=== PATIENT | female | born 1940 | race Caucasian/White ===

== ENCOUNTER 2017-04-18 13:29 | Inpatient (IN) | payer MEDICAID ==
[~2017-04-18] VITALS: Ht 160 cm; Wt 58.3 kg
[~2017-04-18 13:29] MED LIST: ALENDRONATE; AMLODIPINE; ASA; FLUOXETINE; GLIPIZIDE; METFORMIN; METOPROLOL; OMEP40CA34; OYSTER CALCIUM; PRAV40TA; ZOLPIDEM
[2017-04-18] MEDS ORDERED: SODIUM CHLORIDE 0.9% 1,000 ML IV ONE (14:25)
[2017-04-18 15:16] LABS: BASOPHILS % 0.4 % (0.0-2.0); EOSINOPHILS % 2.6 % (0.0-5.0); HEMATOCRIT. 40.1 % (36.0-48.0); HEMOGLOBIN. 13.4 g/dL (12.0-16.0); LYMPHOCYTES % 33.4 % (20.0-50.0); MEAN CORPUSCULAR HEMOGLOBIN 29.7 pg (28.0-32.0); MEAN CORPUSCULAR VOLUME 89.2 fL (81.0-99.0); MEAN PLATELET VOLUME 8.7 fl (7.4-10.4); MONOCYTES % 9.6 % (2.0-8.0); PLATELET 235 x1000/uL (130-400); RED CELL DISTRIBUTION WIDTH 16.2 % (11.6-14.6)
[2017-04-18 15:24] LABS: PARTIAL THROMBOPLASTIN TIME 25.9 sec (23.4-31.0); PROTHROMBIN TIME 10.6 sec (9.4-11.6)
[2017-04-18 15:25] LABS: CHLORIDE 101 mEq/L (98-107)
[2017-04-18 15:26] LABS: CLARITY URINE CLEAR (CLEAR); COLOR URINE YELLOW (YELLOW); KETONES URINE NEGATIVE (NEGATIVE); LEUKOCYTE ESTERASE URINE NEGATIVE (NEGATIVE); NITRITE URINE NEGATIVE (NEGATIVE); OCCULT BLOOD URINE NEGATIVE (NEGATIVE); PROTEIN URINE NEGATIVE (NEGATIVE); SPECIFIC GRAVITY URINE 1.011 (1.005-1.030)
[2017-04-18 15:36] LABS: CARBON DIOXIDE 29 mEq/L (21-32); TROPONIN I < 0.02 ng/mL (0.00-0.04)
[2017-04-18 15:37] LABS: CREATINE KINASE MB FRACTION 0.8 ng/mL (0.5-3.6)
[2017-04-18] MEDS ORDERED: ASPIRIN 325MG EC TABLET PO ONE (16:00)
[2017-04-18 18:18] VITALS: BP 143/75
[2017-04-18] MEDS ORDERED: ATOR20TA65 PO (18:27)
[2017-04-18] MEDS ORDERED: AMLO1CAP PO (18:27)
[2017-04-18] MEDS ORDERED: FLUO-124 PO (18:27)
[2017-04-18] MEDS ORDERED: METO100T16 PO (18:27)
[2017-04-18] MEDS ORDERED: METF10002 PO (18:27)
[2017-04-18] MEDS ORDERED: ALBU18HF2 IH (18:27)
[2017-04-18] MEDS ORDERED: ACET-1465 PO (18:27)
[2017-04-18 19:45] LABS: BG BASE EXCESS -4.5 mmol/L (-2.0-2.0); BG CARBOXYHEMOGLOBIN 0.8 % (0.5-1.5); BG DEOXYHEMOGLOBIN 6.9 % (0.0-5.0); BG FRACTION INSPIRED OXYGEN 21; BG HCO3 ACT 18.4 mmol/L (22.0-26.0); BG METHEMOGLOBIN 0.2 % (0.0-1.5); BG OXYHEMOGLOBIN 92.1 % (94.0-97.0); BG PCO2 28.6 mmHg (35.0-45.0); BG PH 7.427 (7.350-7.450); BG PO2 69.8 mmHg (75.0-100.0); BG SAMPLE SITE LEFT RADIAL; BG TOTAL HEMOGLOBIN 13.9 g/dL (12.0-18.0); BG VENT MODE ROOM AIR
[2017-04-18] MEDS ORDERED: DEXT 5%/0.45% NACL 1000ML 1,000 ML IV SCH (20:00)
[2017-04-18] MEDS: BLOOD SUGAR DIAGNOSTIC STRIP TEST SCH (20:31)
[2017-04-18] MEDS: ENOXAPARIN 40MG/0.4ML SYR SUBCUT SCH (20:31)
[2017-04-18 20:49] VITALS: BP 135/75
[2017-04-19] VITALS: BP 129/79
[2017-04-19 04:00] VITALS: BP 129/73
[2017-04-19 06:32] LABS: BASOPHILS % 0.9 % (0.0-2.0); EOSINOPHILS % 2.1 % (0.0-5.0); HEMATOCRIT. 38.2 % (36.0-48.0); HEMOGLOBIN. 12.8 g/dL (12.0-16.0); LYMPHOCYTES % 38.7 % (20.0-50.0); MEAN CORPUSCULAR HEMOGLOBIN 29.8 pg (28.0-32.0); MEAN PLATELET VOLUME 8.4 fl (7.4-10.4); NEUTROPHILS % 47.3 % (40.0-76.0); PLATELET 230 x1000/uL (130-400); RED BLOOD CELL COUNT 4.29 mill/uL (4.2-5.4); RED CELL DISTRIBUTION WIDTH 15.9 % (11.6-14.6)
[2017-04-19] MEDS: BLOOD SUGAR DIAGNOSTIC STRIP TEST SCH ×4 (06:41→20:20)
[2017-04-19 07:35] LABS: CARBON DIOXIDE 28 mEq/L (21-32); CHLORIDE 101 mEq/L (98-107)
[2017-04-19 08:00] VITALS: BP 126/75
[2017-04-19 12:20] VITALS: BP 131/74
[2017-04-19 13:25] LABS: VITAMIN B12 SERUM 494 pg/mL (211-911)
[2017-04-19 14:06] LABS: FOLIC ACID (FOLATE) SERUM > 20.00 ng/mL (>5.38)
[2017-04-19 14:57] LABS: *AMPHETAMINES SCREEN URINE NEGATIVE (NEGATIVE); *BARBITURATES SCREEN URINE NEGATIVE (NEGATIVE); *BENZODIAZEPINES SCREEN URINE NEGATIVE (NEGATIVE); *COCAINE SCREEN URINE NEGATIVE (NEGATIVE); CANNABINOID URINE SCREEN NEGATIVE (NEGATIVE); METHADONE URINE SCREEN NEGATIVE (NEGATIVE); OPIATES URINE SCREEN NEGATIVE (NEGATIVE); PHENCYCLIDINE URINE SCREEN NEGATIVE (NEGATIVE)
[2017-04-19 16:15] VITALS: BP 141/69
[2017-04-19 16:26] LABS: ETHANOL BLOOD < 10 mg/dL; HDL CHOLESTEROL 35 mg/dL (40-59); LDL CHOLESTEROL 65 mg/dL (5-100)
[2017-04-19 20:00] VITALS: BP 140/82
[2017-04-19] MEDS: ATORVASTATIN CALCIUM 10MG TABLET PO SCH (20:15)
[2017-04-19] MEDS: ENOXAPARIN 40MG/0.4ML SYR SUBCUT SCH (20:15)
[2017-04-19] MEDS: METOPROLOL TARTRATE 25MG TABLET PO SCH (20:53)
[2017-04-19] MEDS: ASPIRIN 81MG TABLET PO SCH (20:53)
[2017-04-19] MEDS: INSULIN LISPRO 100 UNITS/ML SUBCUT SCH (21:00)
[2017-04-20] VITALS: BP 140/71
[2017-04-20 04:00] VITALS: BP 123/72
[2017-04-20] MEDS: BLOOD SUGAR DIAGNOSTIC STRIP TEST SCH ×4 (05:49→20:54)
[2017-04-20] MEDS: INSULIN LISPRO 100 UNITS/ML SUBCUT SCH ×4 (06:23→20:54)
[2017-04-20 07:14] LABS: BASOPHILS % 0.8 % (0.0-2.0); EOSINOPHILS % 2.9 % (0.0-5.0); HEMATOCRIT. 39.6 % (36.0-48.0); HEMOGLOBIN. 13.4 g/dL (12.0-16.0); LYMPHOCYTES % 44.3 % (20.0-50.0); MEAN CORPUSCULAR HEMOGLOBIN 29.9 pg (28.0-32.0); MEAN CORPUSCULAR VOLUME 88.2 fL (81.0-99.0); MEAN PLATELET VOLUME 8.4 fl (7.4-10.4); MONOCYTES % 10.9 % (2.0-8.0); NEUTROPHILS % 41.1 % (40.0-76.0); PLATELET 250 x1000/uL (130-400); RED BLOOD CELL COUNT 4.49 mill/uL (4.2-5.4); RED CELL DISTRIBUTION WIDTH 15.9 % (11.6-14.6)
[2017-04-20 07:39] LABS: CHLORIDE 103 mEq/L (98-107)
[2017-04-20 08:00] VITALS: BP 131/71
[2017-04-20 08:04] LABS: CARBON DIOXIDE 25 mEq/L (21-32)
[2017-04-20] MEDS: ASPIRIN 81MG TABLET PO SCH (08:24)
[2017-04-20] MEDS: METOPROLOL TARTRATE 25MG TABLET PO SCH ×2 (08:25→20:42)
[2017-04-20 12:00] VITALS: BP 139/86
[2017-04-20] MEDS: APIXABAN 5 MG TABLET PO SCH ×2 (13:19→20:42)
[2017-04-20 16:00] VITALS: BP 145/64
[2017-04-20 20:00] VITALS: BP 144/74
[2017-04-20] MEDS: ATORVASTATIN CALCIUM 10MG TABLET PO SCH (20:42)
[2017-04-21] VITALS: BP 154/75
[2017-04-21 04:00] VITALS: BP 144/84
[2017-04-21] MEDS: BLOOD SUGAR DIAGNOSTIC STRIP TEST SCH ×4 (06:15→21:35)
[2017-04-21] MEDS: INSULIN LISPRO 100 UNITS/ML SUBCUT SCH ×4 (07:01→21:55)
[2017-04-21 08:00] VITALS: BP 150/78
[2017-04-21] MEDS: METOPROLOL TARTRATE 25MG TABLET PO SCH ×2 (09:51→21:50)
[2017-04-21] MEDS: ASPIRIN 81MG TABLET PO SCH (09:51)
[2017-04-21] MEDS: APIXABAN 5 MG TABLET PO SCH ×2 (10:12→21:50)
[2017-04-21] MEDS ORDERED: IOHEXOL-350 100 ML BOTTLE ONE (11:43)
[2017-04-21 12:00] VITALS: BP 145/80
[2017-04-21 16:00] VITALS: BP 145/85
[2017-04-21] MEDS: DIGOXIN 250MCG TABLET PO SCH (17:27)
[2017-04-21 20:00] VITALS: BP 122/67
[2017-04-21] MEDS: ATORVASTATIN CALCIUM 10MG TABLET PO SCH (21:49)
[2017-04-22] VITALS: BP 131/62
[2017-04-22 04:00] VITALS: BP 158/67
[2017-04-22] MEDS: BLOOD SUGAR DIAGNOSTIC STRIP TEST SCH ×4 (06:51→21:44)
[2017-04-22] MEDS: INSULIN LISPRO 100 UNITS/ML SUBCUT SCH ×4 (06:59→21:45)
[2017-04-22 08:00] VITALS: BP 106/83
[2017-04-22] MEDS: APIXABAN 5 MG TABLET PO SCH ×2 (09:15→21:43)
[2017-04-22] MEDS: ASPIRIN 81MG TABLET PO SCH (09:15)
[2017-04-22] MEDS: METOPROLOL TARTRATE 25MG TABLET PO SCH ×2 (09:16→21:43)
[2017-04-22 12:00] VITALS: BP 121/79
[2017-04-22 16:00] VITALS: BP 128/60
[2017-04-22] MEDS: DIGOXIN 250MCG TABLET PO SCH (18:04)
[2017-04-22 20:00] VITALS: BP 135/81
[2017-04-22] MEDS: ATORVASTATIN CALCIUM 10MG TABLET PO SCH (21:43)
[2017-04-22] MEDS: INSULIN DETEMIR UD 100 UNITS/ML SYR SUBCUT SCH (21:46)
[2017-04-23] VITALS: BP 131/79
[2017-04-23 04:00] VITALS: BP 132/68
[2017-04-23] MEDS: INSULIN LISPRO 100 UNITS/ML SUBCUT SCH ×4 (06:59→22:10)
[2017-04-23] MEDS: BLOOD SUGAR DIAGNOSTIC STRIP TEST SCH ×4 (07:00→21:17)
[2017-04-23 08:00] VITALS: BP 124/84
[2017-04-23] MEDS: ASPIRIN 81MG TABLET PO SCH (09:54)
[2017-04-23] MEDS: APIXABAN 5 MG TABLET PO SCH ×2 (09:54→21:16)
[2017-04-23] MEDS: METOPROLOL TARTRATE 25MG TABLET PO SCH ×2 (09:54→21:17)
[2017-04-23 12:23] VITALS: BP 132/69
[2017-04-23 16:31] VITALS: BP 142/53
[2017-04-23 20:00] VITALS: BP 132/65
[2017-04-23] MEDS: ATORVASTATIN CALCIUM 10MG TABLET PO SCH (21:17)
[2017-04-23] MEDS: INSULIN DETEMIR UD 100 UNITS/ML SYR SUBCUT SCH (22:00)
[2017-04-24] VITALS: BP 127/51
[2017-04-24 04:00] VITALS: BP 125/59
[2017-04-24] MEDS: BLOOD SUGAR DIAGNOSTIC STRIP TEST SCH ×4 (06:32→21:38)
[2017-04-24] MEDS: INSULIN LISPRO 100 UNITS/ML SUBCUT SCH ×4 (06:55→21:51)
[2017-04-24 08:00] VITALS: BP 123/68
[2017-04-24] MEDS: APIXABAN 5 MG TABLET PO SCH ×2 (09:47→21:50)
[2017-04-24] MEDS: METOPROLOL TARTRATE 25MG TABLET PO SCH ×2 (09:47→21:50)
[2017-04-24] MEDS: ASPIRIN 81MG TABLET PO SCH (09:47)
[2017-04-24 12:00] VITALS: BP 124/70
[2017-04-24 16:00] VITALS: BP 128/77
[2017-04-24 20:00] VITALS: BP 142/64
[2017-04-24] MEDS: ATORVASTATIN CALCIUM 10MG TABLET PO SCH (21:49)
[2017-04-24] MEDS: INSULIN DETEMIR UD 100 UNITS/ML SYR SUBCUT SCH (21:49)
[2017-04-25] VITALS: BP 115/70
[2017-04-25 04:00] VITALS: BP 154/64
[2017-04-25] MEDS: BLOOD SUGAR DIAGNOSTIC STRIP TEST SCH ×3 (06:16→17:27)
[2017-04-25] MEDS: INSULIN LISPRO 100 UNITS/ML SUBCUT SCH ×3 (06:36→17:27)
[2017-04-25 08:00] VITALS: BP 135/78
[2017-04-25] MEDS: ASPIRIN 81MG TABLET PO SCH (08:37)
[2017-04-25] MEDS: APIXABAN 5 MG TABLET PO SCH (08:37)
[2017-04-25] MEDS: METOPROLOL TARTRATE 25MG TABLET PO SCH (08:37)
[2017-04-25 12:00] VITALS: BP 151/71
[2017-04-25 16:00] VITALS: BP 128/60
[2017-04-25 16:16] VITALS: BP 145/80
== END 2017-04-25 20:22 | disposition short-term general hospital (02) | DRG 44 ==
LOC: ER 14:29 → ENRESERV 15:18 → 5WST 16:47 → EDBEDREQ 16:52
PROVIDERS: ADMIT Internal Medicine; ATTEND Internal Medicine
DX: I62.9 Nontraumatic intracranial hemorrhage, unspecified (principal); I48.92 Unspecified atrial flutter; G81.94 Hemiplegia, unspecified affecting left nondominant side; I48.0 Paroxysmal atrial fibrillation; R13.10 Dysphagia, unspecified; I11.9 Hypertensive heart disease without heart failure; J98.11 Atelectasis; R29.810 Facial weakness; E11.9 Type 2 diabetes mellitus without complications; E78.00 Pure hypercholesterolemia, unspecified; E78.5 Hyperlipidemia, unspecified; R79.89 Other specified abnormal findings of blood chemistry; R47.1 Dysarthria and anarthria; R26.9 Unspecified abnormalities of gait and mobility; I65.21 Occlusion and stenosis of right carotid artery; Z79.82 Long term (current) use of aspirin; Z79.01 Long term (current) use of anticoagulants; Z79.899 Other long term (current) drug therapy; Z82.5 Family history of asthma and other chronic lower respiratory diseases
CPT/HCPCS: 36415; 36600; 70450; 70498; 70544; 70553; 71010; 80048; 80053; 80061; 80305; 81003; 82375; 82553; 82607; 82746; 82805; 82962; 83036; 83735; 84439; 84443; 84481; 84484; 85025; 85610; 85730; 87086; 92610; 93005; 93306; 93880; 97112; 97116; 97162; 97166; 99285; C1893; G0482; J1650; J1815; J3490; J7030; Q9967

== ENCOUNTER 2018-03-04 04:59 | Emergency (ER) | payer MEDICAID ==
[~2018-03-04] VITALS: Ht 154.9 cm; Wt 58.9 kg
[~2018-03-04 04:59] MED LIST changes: +ACET-1465 PO; +ALBU18HF2 IH; +ALEN70TA46 MT; +AMLO1CAP PO; +APIX5TAB MT; +ATOR20TA65 PO; +FLUO-124 PO; +GLIP10TA10 MT; +INSU100I24 SQ; +LEVO750T46 MT; +METF-416 PO; +METO25TA6 PO; +PIOG15TA66 MT; +ZOLP5TAB8 MT
[2018-03-04 07:40] LABS: BASOPHILS % 0.9 % (0.0-2.0); EOSINOPHILS % 1.3 % (0.0-5.0); HEMATOCRIT. 35.5 % (36.0-48.0); HEMOGLOBIN. 11.8 g/dL (12.0-16.0); LYMPHOCYTES % 32.7 % (20.0-50.0); MEAN CORPUSCULAR HEMOGLOBIN 27.6 pg (28.0-32.0); MEAN CORPUSCULAR VOLUME 82.9 fL (81.0-99.0); MONOCYTES % 9.6 % (2.0-8.0); NEUTROPHILS % 55.5 % (40.0-76.0); PLATELET 171 x1000/uL (130-400); RED BLOOD CELL COUNT 4.29 mill/uL (4.2-5.4); RED CELL DISTRIBUTION WIDTH 16.5 % (11.6-14.6)
[2018-03-04] MEDS ORDERED: MORPHINE SULFATE 4 MG/ML CPJ (NOT FOR IM USE) IV STA (07:40)
[2018-03-04] MEDS ORDERED: ONDANSETRON HCL 4MG/2ML INJ IV STA (07:40)
[2018-03-04 07:46] LABS: INR 1.2
[2018-03-04 07:52] LABS: CHLORIDE 103 mEq/L (98-107)
[2018-03-04 08:44] LABS: CLARITY URINE CLEAR (CLEAR); COLOR URINE YELLOW (YELLOW); KETONES URINE TRACE (NEGATIVE); LEUKOCYTE ESTERASE URINE NEGATIVE (NEGATIVE); NITRITE URINE NEGATIVE (NEGATIVE); OCCULT BLOOD URINE NEGATIVE (NEGATIVE); PH URINE 7.5 (4.5-8.0); PROTEIN URINE NEGATIVE (NEGATIVE); SPECIFIC GRAVITY URINE 1.003 (1.005-1.030); UROBILINOGEN URINE 0.2 E.U./dL (0.2-1.0)
[2018-03-04 10:00] VITALS: BP 150/74
== END 2018-03-04 10:13 | disposition home or self-care (01) ==
LOC: ER 04:59
DX: R10.9 Unspecified abdominal pain (principal); R07.89 Other chest pain; R06.02 Shortness of breath; E78.00 Pure hypercholesterolemia, unspecified; I10 Essential (primary) hypertension; I25.2 Old myocardial infarction; Z86.73 Personal history of transient ischemic attack (TIA), and cerebral infarction without residual deficits; Z79.4 Long term (current) use of insulin; Z79.899 Other long term (current) drug therapy
CPT/HCPCS: 36415; 71045; 84484; 93005; 99285

== ENCOUNTER 2018-10-30 21:44 | Inpatient (IN) | payer MEDICAID ==
[~2018-10-30] VITALS: Ht 160 cm; Wt 53.5 kg
[~2018-10-30 21:44] MED LIST changes: -ALEN70TA46 MT; +ALEN70TA68 MT
[2018-10-31 02:07] LABS: BASOPHILS % 0.8 % (0.0-2.0); CHLORIDE 105 mEq/L (98-107); EOSINOPHILS % 3.3 % (0.0-5.0); HEMATOCRIT. 38.5 % (36.0-48.0); LYMPHOCYTES % 38.9 % (20.0-50.0); MEAN CORPUSCULAR HEMOGLOBIN 30.1 pg (28.0-32.0); MEAN PLATELET VOLUME 8.8 fl (7.4-10.4); MONOCYTES % 12.9 % (2.0-8.0); NEUTROPHILS % 44.1 % (40.0-76.0); PLATELET 153 x1000/uL (130-400); RED BLOOD CELL COUNT 4.32 mill/uL (4.2-5.4); RED CELL DISTRIBUTION WIDTH 15.8 % (11.6-14.6)
[2018-10-31 02:08] LABS: INR 1.3
[2018-10-31 08:00] VITALS: BP 147/73
[2018-10-31] MEDS ORDERED: ONDANSETRON HCL 4MG/2ML INJ IV PRN (09:15)
[2018-10-31] MEDS ORDERED: MAGNESIUM/ALUMINUM HYDROXIDE/SIMETHICONE 30ML UDC PO PRN (09:15)
[2018-10-31] MEDS ORDERED: DIPHENHYDRAMINE 50MG/ML VIAL IV PRN (09:15)
[2018-10-31] MEDS ORDERED: CLONIDINE 0.1MG TABLET PO PRN (09:15)
[2018-10-31] MEDS ORDERED: IPRATROPIUM/ALBUTEROL 0.5-3(2.5)MG/3ML NEB INH PRN (09:15)
[2018-10-31] MEDS ORDERED: HYDROCODONE/ACETAMINOPHEN 5/325MG TABLET PO PRN (09:15)
[2018-10-31] MEDS ORDERED: GUAIFENESIN 200MG/10ML SUGAR FREE UDC PO PRN (09:15)
[2018-10-31] MEDS ORDERED: ACETAMINOPHEN 325MG TABLET PO PRN (09:15)
[2018-10-31] MEDS ORDERED: ENOXAPARIN 40MG/0.4ML SYR SUBCUT SCH (09:30)
[2018-10-31 09:44] LABS: PHOSPHORUS 3.5 mg/dL (2.5-4.9)
[2018-10-31 10:00] VITALS: BP 147/73
[2018-10-31] MEDS: AZITHROMYCIN 500 MG in DEXT 5% WATER 250 ML IV SCH (11:24)
[2018-10-31 12:00] VITALS: BP 121/71
[2018-10-31 15:38] LABS: CREATINE KINASE 32 IU/L (26-192); CREATINE KINASE MB FRACTION < 1.0 ng/mL (0.5-3.6)
[2018-10-31 16:00] VITALS: BP 135/81
[2018-10-31] MEDS ORDERED: FUROSEMIDE 40MG/4ML VIAL IVP ONE (16:00)
[2018-10-31] MEDS ORDERED: DEXTROSE 50% WATER 50ML SYRINGE IV PRN (17:00)
[2018-10-31] MEDS: BLOOD SUGAR DIAGNOSTIC STRIP TEST SCH ×2 (17:31→21:18)
[2018-10-31] MEDS: METHYLPREDNISOLONE SOD SUCC 40 MG/ML VIAL IV SCH (17:49)
[2018-10-31] MEDS: INSULIN LISPRO 100 UNITS/ML SUBCUT SCH ×2 (17:56→20:19)
[2018-10-31 20:00] VITALS: BP 155/83
[2018-10-31] MEDS: APIXABAN 5 MG TABLET PO SCH (20:16)
[2018-10-31] MEDS: ZOLPIDEM TARTRATE 5MG TABLET PO PRN (20:17)
[2018-10-31] MEDS ORDERED: [UNRECOGNIZED DRUG - OTHER] PO (21:44)
[2018-10-31 23:38] LABS: CREATINE KINASE 36 IU/L (26-192)
[2018-10-31 23:39] LABS: CREATINE KINASE MB FRACTION < 1.0 ng/mL (0.5-3.6)
[2018-11-01] VITALS: BP 134/80
[2018-11-01 04:00] VITALS: BP 133/60
[2018-11-01] MEDS: BLOOD SUGAR DIAGNOSTIC STRIP TEST SCH ×4 (05:59→20:22)
[2018-11-01] MEDS: INSULIN LISPRO 100 UNITS/ML SUBCUT SCH ×4 (06:32→20:21)
[2018-11-01 07:32] LABS: BASOPHILS % 0.6 % (0.0-2.0); HEMATOCRIT. 40.1 % (36.0-48.0); HEMOGLOBIN. 13.4 g/dL (12.0-16.0); LYMPHOCYTES % 33.8 % (20.0-50.0); MEAN CORPUSCULAR HEMOGLOBIN 29.8 pg (28.0-32.0); MEAN CORPUSCULAR VOLUME 89.2 fL (81.0-99.0); MEAN PLATELET VOLUME 9.4 fl (7.4-10.4); MONOCYTES % 5.6 % (2.0-8.0); PLATELET 154 x1000/uL (130-400); RED BLOOD CELL COUNT 4.49 mill/uL (4.2-5.4); RED CELL DISTRIBUTION WIDTH 15.6 % (11.6-14.6)
[2018-11-01 07:37] LABS: CHLORIDE 104 mEq/L (98-107)
[2018-11-01 07:46] LABS: LDL CHOLESTEROL 49 mg/dL (5-100)
[2018-11-01 07:47] LABS: HDL CHOLESTEROL 39 mg/dL (40-59)
[2018-11-01 08:00] VITALS: BP 136/83
[2018-11-01] MEDS: APIXABAN 5 MG TABLET PO SCH ×2 (09:10→21:41)
[2018-11-01] MEDS: METHYLPREDNISOLONE SOD SUCC 40 MG/ML VIAL IV SCH (09:10)
[2018-11-01] MEDS: AMLODIPINE 5MG TABLET PO SCH (09:10)
[2018-11-01] MEDS: AZITHROMYCIN 500 MG in DEXT 5% WATER 250 ML IV SCH (10:49)
[2018-11-01] MEDS ORDERED: POTASSIUM CHLORIDE 20MEQ TABLET SR PO NR (11:15)
[2018-11-01 12:00] VITALS: BP 138/78
[2018-11-01 16:00] VITALS: BP 138/76
[2018-11-01] MEDS ORDERED: METO100T16 PO (18:20)
[2018-11-01] MEDS ORDERED: GABA-529 PO (18:26)
[2018-11-01] MEDS ORDERED: PIOG15TA23 MT (18:26)
[2018-11-01] MEDS ORDERED: METF-416 MT (18:26)
[2018-11-01 20:00] VITALS: BP 155/85
[2018-11-01] MEDS ORDERED: INSULIN LISPRO 100 UNITS/ML SUBCUT NR (22:15)
[2018-11-01] MEDS: ZOLPIDEM TARTRATE 5MG TABLET PO PRN (22:17)
[2018-11-02] VITALS: BP 145/80
[2018-11-02 04:00] VITALS: BP 137/85
[2018-11-02] MEDS: BUDESONIDE 0.5MG/2ML NEB HHN SCH ×3 (05:35→21:37)
[2018-11-02] MEDS: BLOOD SUGAR DIAGNOSTIC STRIP TEST SCH ×4 (06:41→21:35)
[2018-11-02] MEDS: INSULIN LISPRO 100 UNITS/ML SUBCUT SCH ×4 (06:47→21:47)
[2018-11-02] MEDS: DOCUSATE SODIUM 100MG CAPSULE PO PRN (06:47)
[2018-11-02 07:52] LABS: BASOPHILS % 0.6 % (0.0-2.0); EOSINOPHILS % 0.4 % (0.0-5.0); HEMATOCRIT. 39.5 % (36.0-48.0); HEMOGLOBIN. 13.2 g/dL (12.0-16.0); MEAN CORPUSCULAR HEMOGLOBIN 29.7 pg (28.0-32.0); MEAN CORPUSCULAR VOLUME 89.2 fL (81.0-99.0); MEAN PLATELET VOLUME 9.1 fl (7.4-10.4); MONOCYTES % 9.7 % (2.0-8.0); NEUTROPHILS % 65.3 % (40.0-76.0); PLATELET 162 x1000/uL (130-400); RED BLOOD CELL COUNT 4.43 mill/uL (4.2-5.4); RED CELL DISTRIBUTION WIDTH 15.9 % (11.6-14.6)
[2018-11-02 08:00] VITALS: BP 140/79
[2018-11-02 08:06] LABS: CHLORIDE 103 mEq/L (98-107)
[2018-11-02] MEDS: APIXABAN 5 MG TABLET PO SCH ×2 (08:24→21:32)
[2018-11-02] MEDS: AMLODIPINE 5MG TABLET PO SCH (08:24)
[2018-11-02] MEDS: METHYLPREDNISOLONE SOD SUCC 40 MG/ML VIAL IV SCH (08:24)
[2018-11-02] MEDS ORDERED: METOPROLOL TARTRATE 50MG TABLET PO NR (10:15)
[2018-11-02 12:00] VITALS: BP 138/77
[2018-11-02 16:00] VITALS: BP 138/80
[2018-11-02 20:00] VITALS: BP 142/76
[2018-11-02] MEDS: METOPROLOL TARTRATE 50MG TABLET PO SCH (21:45)
[2018-11-02] MEDS: INSULIN GLARGINE UD 100 UNITS/ML SYR SUBCUT SCH (21:48)
[2018-11-02] MEDS: ZOLPIDEM TARTRATE 5MG TABLET PO PRN (23:04)
[2018-11-03] VITALS: BP 140/81
[2018-11-03 04:00] VITALS: BP 127/73
[2018-11-03] MEDS: BLOOD SUGAR DIAGNOSTIC STRIP TEST SCH ×3 (07:02→16:45)
[2018-11-03] MEDS: INSULIN LISPRO 100 UNITS/ML SUBCUT SCH ×3 (07:03→19:32)
[2018-11-03 08:00] VITALS: BP 162/98
[2018-11-03] MEDS: BUDESONIDE 0.5MG/2ML NEB HHN SCH (08:03)
[2018-11-03 08:04] LABS: BASOPHILS % 0.5 % (0.0-2.0); EOSINOPHILS % 0.5 % (0.0-5.0); HEMATOCRIT. 42.4 % (36.0-48.0); LYMPHOCYTES % 28.4 % (20.0-50.0); MEAN CORPUSCULAR HEMOGLOBIN 29.3 pg (28.0-32.0); MEAN CORPUSCULAR VOLUME 88.9 fL (81.0-99.0); MEAN PLATELET VOLUME 9.4 fl (7.4-10.4); MONOCYTES % 8.6 % (2.0-8.0); PLATELET 159 x1000/uL (130-400); RED BLOOD CELL COUNT 4.77 mill/uL (4.2-5.4); RED CELL DISTRIBUTION WIDTH 15.9 % (11.6-14.6)
[2018-11-03 08:33] LABS: CHLORIDE 104 mEq/L (98-107)
[2018-11-03] MEDS: APIXABAN 5 MG TABLET PO SCH (09:25)
[2018-11-03] MEDS: METHYLPREDNISOLONE SOD SUCC 40 MG/ML VIAL IV SCH (09:26)
[2018-11-03] MEDS: METOPROLOL TARTRATE 50MG TABLET PO SCH (09:26)
[2018-11-03] MEDS: AMLODIPINE 5MG TABLET PO SCH (09:26)
[2018-11-03] MEDS: INSULIN GLARGINE UD 100 UNITS/ML SYR SUBCUT SCH (09:27)
[2018-11-03 12:00] VITALS: BP 134/79
[2018-11-03] MEDS: DOCUSATE SODIUM 100MG CAPSULE PO PRN (13:55)
[2018-11-03 16:00] VITALS: BP 131/78
[2018-11-03] MEDS ORDERED: INSULIN LISPRO 100 UNITS/ML SUBCUT NR (17:00)
[2018-11-03] MEDS ORDERED: AZIT500T5 MT (17:34)
[2018-11-03] MEDS ORDERED: MED4 MT (17:34)
[2018-11-03] MEDS ORDERED: METO-539 PO (17:34)
[2018-11-03] MEDS ORDERED: LANTUSUD SUBCUT (17:34)
[2018-11-03] MEDS ORDERED: AZITHROMYCIN 500 MG in DEXT 5% WATER 250 ML IV SCH (18:00)
[2018-11-03 18:09] VITALS: BP 134/79
== END 2018-11-03 19:43 | disposition home or self-care (01) | DRG 133 ==
LOC: ER 21:44 → ENRESERV 10-31 07:44 → 5WST 10-31 09:05
PROVIDERS: ADMIT Internal Medicine; ATTEND Internal Medicine
DX: J96.00 Acute respiratory failure, unspecified whether with hypoxia or hypercapnia (principal); I47.2 Ventricular tachycardia; I50.41 Acute combined systolic (congestive) and diastolic (congestive) heart failure; E11.65 Type 2 diabetes mellitus with hyperglycemia; I48.1 Persistent atrial fibrillation; I11.0 Hypertensive heart disease with heart failure; M81.0 Age-related osteoporosis without current pathological fracture; J45.909 Unspecified asthma, uncomplicated; J45.998 Other asthma; I49.3 Ventricular premature depolarization; F51.04 Psychophysiologic insomnia; R47.02 Dysphasia; M19.90 Unspecified osteoarthritis, unspecified site; R07.89 Other chest pain; E78.5 Hyperlipidemia, unspecified; E87.6 Hypokalemia; F41.9 Anxiety disorder, unspecified; K21.9 Gastro-esophageal reflux disease without esophagitis; Z86.73 Personal history of transient ischemic attack (TIA), and cerebral infarction without residual deficits; Z79.01 Long term (current) use of anticoagulants; Z79.899 Other long term (current) drug therapy; Z87.01 Personal history of pneumonia (recurrent); Z79.4 Long term (current) use of insulin
CPT/HCPCS: 36415; 71045; 80048; 80061; 82550; 82553; 82962; 83036; 83735; 83880; 84100; 84145; 84443; 84484; 93005; 93306; 93970; 94640; 97116; 97161; 97165; 99285; J0456; J1650; J1815; J1940; J2920; J7050; J7060; J7620; J7626

== ENCOUNTER 2018-11-17 15:18 | Inpatient (IN) | payer MEDICAID ==
[~2018-11-17] VITALS: Ht 152.4 cm; Wt 51.3 kg
[~2018-11-17 15:18] MED LIST changes: -ALENDRONATE; -AMLODIPINE; -ASA; +AZIT500T5 MT; -FLUOXETINE; +GABA-529 PO; -GLIPIZIDE; -INSU100I24 SQ; +LANTUSUD SUBCUT; -LEVO750T46 MT; +MED4 MT; -METFORMIN; +METO-539 PO; -METO25TA6 PO; -METOPROLOL; -OMEP40CA34; -OYSTER CALCIUM; +PIOG15TA23 MT; -PIOG15TA66 MT; -PRAV40TA; -ZOLPIDEM
[2018-11-17] MEDS ORDERED: VANCOMYCIN 1 G PREMIX 200 ML IV ONE (16:30)
[2018-11-17] MEDS ORDERED: PIPERACILLIN/TAZ 3.375G PREMIX 50 ML IV ONE (16:30)
[2018-11-17] MEDS ORDERED: ACETAMINOPHEN 325MG TABLET PO STA (16:30)
[2018-11-17] MEDS ORDERED: SODIUM CHLORIDE 0.9% 1000ML BAG (SEPSIS BOLUS) IV ONE (16:30)
[2018-11-17 16:42] LABS: BASOPHILS % 0.3 % (0.0-2.0); CHLORIDE 98 mEq/L (98-107); EOSINOPHILS % 0.5 % (0.0-5.0); HEMATOCRIT. 42.2 % (36.0-48.0); HEMOGLOBIN. 14.2 g/dL (12.0-16.0); LYMPHOCYTES % 18.1 % (20.0-50.0); MEAN CORPUSCULAR HEMOGLOBIN 29.9 pg (28.0-32.0); MEAN CORPUSCULAR VOLUME 88.6 fL (81.0-99.0); MEAN PLATELET VOLUME 8.9 fl (7.4-10.4); MONOCYTES % 9.6 % (2.0-8.0); NEUTROPHILS % 71.5 % (40.0-76.0); PLATELET 133 x1000/uL (130-400); RED BLOOD CELL COUNT 4.76 mill/uL (4.2-5.4)
[2018-11-17 17:27] LABS: CLARITY URINE CLOUDY (CLEAR); COLOR URINE YELLOW (YELLOW); KETONES URINE NEGATIVE (NEGATIVE); LEUKOCYTE ESTERASE URINE TRACE (NEGATIVE); NITRITE URINE NEGATIVE (NEGATIVE); OCCULT BLOOD URINE 1+ (NEGATIVE); PH URINE 6.5 (4.5-8.0); PROTEIN URINE 1+ (NEGATIVE); SPECIFIC GRAVITY URINE 1.006 (1.005-1.030)
[2018-11-17] MEDS: FUROSEMIDE 40MG/4ML VIAL IV SCH (18:15)
[2018-11-17] MEDS ORDERED: CLONIDINE 0.1MG TABLET PO PRN (18:15)
[2018-11-17] MEDS ORDERED: ONDANSETRON HCL 4MG/2ML INJ IV PRN (18:15)
[2018-11-17] MEDS ORDERED: ENOXAPARIN 40MG/0.4ML SYR SUBCUT SCH (18:15)
[2018-11-17] MEDS ORDERED: IPRATROPIUM/ALBUTEROL 0.5-3(2.5)MG/3ML NEB INH PRN (18:15)
[2018-11-17] MEDS ORDERED: GUAIFENESIN 200MG/10ML SUGAR FREE UDC PO PRN (18:15)
[2018-11-17] MEDS ORDERED: DOCUSATE SODIUM 100MG CAPSULE PO PRN (18:15)
[2018-11-17] MEDS ORDERED: MAGNESIUM/ALUMINUM HYDROXIDE/SIMETHICONE 30ML UDC PO PRN (18:15)
[2018-11-17] MEDS ORDERED: ACETAMINOPHEN 325MG TABLET PO ONE (18:30)
[2018-11-17 19:11] LABS: PHOSPHORUS 2.4 mg/dL (2.5-4.9)
[2018-11-17 22:45] VITALS: BP 124/73
[2018-11-17 23:33] LABS: CREATINE KINASE 29 IU/L (26-192); CREATINE KINASE MB FRACTION < 1.0 ng/mL (0.5-3.6)
[2018-11-18] VITALS: BP 124/73
[2018-11-18] MEDS: PIPERACILLIN/TAZ 2.25G PREMIX 50 ML IV SCH ×5 (01:39→23:33)
[2018-11-18 04:00] VITALS: BP 135/72
[2018-11-18 07:26] LABS: BASOPHILS % 0.7 % (0.0-2.0); EOSINOPHILS % 1.6 % (0.0-5.0); HEMATOCRIT. 38.2 % (36.0-48.0); HEMOGLOBIN. 12.9 g/dL (12.0-16.0); LYMPHOCYTES % 24.8 % (20.0-50.0); MEAN CORPUSCULAR HEMOGLOBIN 30.1 pg (28.0-32.0); MEAN CORPUSCULAR VOLUME 88.9 fL (81.0-99.0); MEAN PLATELET VOLUME 9.5 fl (7.4-10.4); MONOCYTES % 13.8 % (2.0-8.0); NEUTROPHILS % 59.1 % (40.0-76.0); PLATELET 128 x1000/uL (130-400); RED BLOOD CELL COUNT 4.29 mill/uL (4.2-5.4); RED CELL DISTRIBUTION WIDTH 16.2 % (11.6-14.6)
[2018-11-18 08:00] VITALS: BP 137/72
[2018-11-18 08:10] LABS: CHLORIDE 109 mEq/L (98-107)
[2018-11-18 08:25] LABS: CREATINE KINASE 31 IU/L (26-192)
[2018-11-18 08:26] LABS: HDL CHOLESTEROL 35 mg/dL (40-59)
[2018-11-18 08:28] LABS: LDL CHOLESTEROL 45 mg/dL (5-100)
[2018-11-18 08:41] LABS: CREATINE KINASE MB FRACTION < 1.0 ng/mL (0.5-3.6)
[2018-11-18] MEDS ORDERED: ENOXAPARIN 40MG/0.4ML SYR SUBCUT SCH (09:00)
[2018-11-18] MEDS: FUROSEMIDE 40MG/4ML VIAL IV SCH (09:20)
[2018-11-18 11:57] VITALS: BP 128/79
[2018-11-18] MEDS ORDERED: DEXTROSE 50% WATER 50ML SYRINGE IV PRN ×3 (14:00)
[2018-11-18 16:00] VITALS: BP 138/67
[2018-11-18] MEDS ORDERED: MAGNESIUM 2 G PREMIX 50 ML IV NR (16:00)
[2018-11-18] MEDS ORDERED: BLOOD SUGAR DIAGNOSTIC STRIP TEST SCH ×2 (17:10)
[2018-11-18] MEDS: BLOOD SUGAR DIAGNOSTIC STRIP TEST SCH ×2 (17:37→23:00)
[2018-11-18] MEDS ORDERED: INSULIN LISPRO 100 UNITS/ML SUBCUT SCH (17:40)
[2018-11-18] MEDS: INSULIN LISPRO 100 UNITS/ML SUBCUT SCH ×2 (17:52→23:23)
[2018-11-18] MEDS: DILTIAZEM HCL 30MG TABLET PO SCH ×2 (17:54→23:34)
[2018-11-18 20:00] VITALS: BP 140/72
[2018-11-18] MEDS: ENOXAPARIN 40MG/0.4ML SYR SUBCUT SCH (23:11)
[2018-11-19] VITALS: BP 144/71
[2018-11-19 04:00] VITALS: BP 130/62
[2018-11-19] MEDS: DILTIAZEM HCL 30MG TABLET PO SCH ×3 (06:15→17:36)
[2018-11-19] MEDS: PIPERACILLIN/TAZ 2.25G PREMIX 50 ML IV SCH ×3 (06:15→17:36)
[2018-11-19] MEDS: BLOOD SUGAR DIAGNOSTIC STRIP TEST SCH ×4 (06:21→21:17)
[2018-11-19] MEDS: INSULIN LISPRO 100 UNITS/ML SUBCUT SCH ×4 (06:22→21:21)
[2018-11-19 06:38] LABS: BASOPHILS % 0.7 % (0.0-2.0); EOSINOPHILS % 1.7 % (0.0-5.0); HEMATOCRIT. 38.1 % (36.0-48.0); HEMOGLOBIN. 12.9 g/dL (12.0-16.0); LYMPHOCYTES % 30.7 % (20.0-50.0); MEAN CORPUSCULAR VOLUME 88.4 fL (81.0-99.0); MEAN PLATELET VOLUME 9.2 fl (7.4-10.4); NEUTROPHILS % 56.9 % (40.0-76.0); PLATELET 138 x1000/uL (130-400); RED BLOOD CELL COUNT 4.31 mill/uL (4.2-5.4); RED CELL DISTRIBUTION WIDTH 15.9 % (11.6-14.6)
[2018-11-19 08:00] VITALS: BP 116/56
[2018-11-19 08:08] LABS: CHLORIDE 102 mEq/L (98-107)
[2018-11-19] MEDS ORDERED: POTASSIUM CHLORIDE 20MEQ TABLET SR PO SCH (09:00)
[2018-11-19] MEDS: FUROSEMIDE 40MG/4ML VIAL IV SCH ×2 (09:32→17:37)
[2018-11-19] MEDS: ENOXAPARIN 40MG/0.4ML SYR SUBCUT SCH ×2 (09:32→21:17)
[2018-11-19] MEDS ORDERED: POTASSIUM CHLORIDE 20MEQ/PACKET PO NR (11:00)
[2018-11-19 12:00] VITALS: BP 112/51
[2018-11-19 16:28] VITALS: BP 114/54
[2018-11-19] MEDS: POTASSIUM CHLORIDE 20MEQ TABLET SR PO SCH (17:36)
[2018-11-20] MEDS: ZOLPIDEM TARTRATE 5MG TABLET PO PRN ×2 (00:09→22:09)
[2018-11-20] MEDS: DILTIAZEM HCL 30MG TABLET PO SCH ×5 (00:09→23:22)
[2018-11-20] MEDS: PIPERACILLIN/TAZ 2.25G PREMIX 50 ML IV SCH ×5 (00:09→23:22)
[2018-11-20 04:00] VITALS: BP 136/59
[2018-11-20] MEDS: BLOOD SUGAR DIAGNOSTIC STRIP TEST SCH ×4 (05:34→21:00)
[2018-11-20] MEDS: INSULIN LISPRO 100 UNITS/ML SUBCUT SCH ×4 (05:34→23:01)
[2018-11-20 07:20] LABS: BASOPHILS % 0.8 % (0.0-2.0); EOSINOPHILS % 3.2 % (0.0-5.0); HEMATOCRIT. 41.6 % (36.0-48.0); HEMOGLOBIN. 14.1 g/dL (12.0-16.0); LYMPHOCYTES % 43.6 % (20.0-50.0); MEAN CORPUSCULAR HEMOGLOBIN 29.8 pg (28.0-32.0); MEAN CORPUSCULAR VOLUME 87.9 fL (81.0-99.0); MONOCYTES % 8.7 % (2.0-8.0); NEUTROPHILS % 43.7 % (40.0-76.0); PLATELET 166 x1000/uL (130-400); RED BLOOD CELL COUNT 4.74 mill/uL (4.2-5.4); RED CELL DISTRIBUTION WIDTH 16.1 % (11.6-14.6)
[2018-11-20 07:31] LABS: CHLORIDE 102 mEq/L (98-107)
[2018-11-20] MEDS: POTASSIUM CHLORIDE 20MEQ TABLET SR PO SCH ×2 (08:33→18:41)
[2018-11-20] MEDS: FUROSEMIDE 40MG/4ML VIAL IV SCH ×2 (08:33→18:41)
[2018-11-20] MEDS: ENOXAPARIN 40MG/0.4ML SYR SUBCUT SCH (08:33)
[2018-11-20] MEDS ORDERED: POTASSIUM CHLORIDE 20MEQ TABLET SR PO SCH (12:00)
[2018-11-20 12:05] VITALS: BP 112/63
[2018-11-20 13:14] VITALS: BP_SYST 112; BP_SYST 131; BP_DIAS 63; BP_DIAS 74
[2018-11-20 16:00] VITALS: BP 128/62
[2018-11-20 20:00] VITALS: BP 143/67
[2018-11-20] MEDS: ENOXAPARIN 60MG/0.6ML SYR SUBCUT SCH (22:09)
[2018-11-21] VITALS: BP 136/64
[2018-11-21 04:00] VITALS: BP 144/68
[2018-11-21] MEDS: PIPERACILLIN/TAZ 2.25G PREMIX 50 ML IV SCH ×3 (05:30→18:29)
[2018-11-21] MEDS: DILTIAZEM HCL 30MG TABLET PO SCH ×3 (05:30→18:30)
[2018-11-21] MEDS: BLOOD SUGAR DIAGNOSTIC STRIP TEST SCH ×4 (05:31→21:45)
[2018-11-21] MEDS: INSULIN LISPRO 100 UNITS/ML SUBCUT SCH ×4 (05:46→22:21)
[2018-11-21 06:50] LABS: BASOPHILS % 1.1 % (0.0-2.0); EOSINOPHILS % 4.6 % (0.0-5.0); HEMATOCRIT. 42.8 % (36.0-48.0); HEMOGLOBIN. 14.3 g/dL (12.0-16.0); MEAN CORPUSCULAR HEMOGLOBIN 29.3 pg (28.0-32.0); MEAN CORPUSCULAR VOLUME 87.7 fL (81.0-99.0); MEAN PLATELET VOLUME 9.1 fl (7.4-10.4); MONOCYTES % 11.8 % (2.0-8.0); NEUTROPHILS % 38.5 % (40.0-76.0); PLATELET 191 x1000/uL (130-400); RED BLOOD CELL COUNT 4.88 mill/uL (4.2-5.4); RED CELL DISTRIBUTION WIDTH 16.2 % (11.6-14.6)
[2018-11-21 07:05] LABS: CHLORIDE 98 mEq/L (98-107)
[2018-11-21 08:00] VITALS: BP 147/54
[2018-11-21] MEDS: FUROSEMIDE 40MG/4ML VIAL IV SCH (09:16)
[2018-11-21] MEDS: POTASSIUM CHLORIDE 20MEQ TABLET SR PO SCH ×2 (09:16→18:30)
[2018-11-21] MEDS: ENOXAPARIN 60MG/0.6ML SYR SUBCUT SCH (09:17)
[2018-11-21] MEDS ORDERED: POTASSIUM CHLORIDE 20MEQ TABLET SR PO SCH (11:45)
[2018-11-21 11:59] VITALS: BP 128/69
[2018-11-21] MEDS ORDERED: INSULIN LISPRO 100 UNITS/ML SUBCUT SCH (12:45)
[2018-11-21] MEDS: GABAPENTIN 100MG CAPSULE PO SCH ×2 (13:13→18:30)
[2018-11-21] MEDS: FLUOXETINE HCL 20MG CAPSULE PO SCH (13:13)
[2018-11-21] MEDS: PIOGLITAZONE 15MG TABLET PO SCH (14:57)
[2018-11-21 15:55] VITALS: BP 133/71
[2018-11-21] MEDS: METFORMIN HCL 500MG TABLET PO SCH (18:30)
[2018-11-21] MEDS: GLIPIZIDE 10MG TABLET PO SCH (18:30)
[2018-11-21] MEDS: APIXABAN 5 MG TABLET PO SCH (18:30)
[2018-11-21] MEDS: FUROSEMIDE 40MG TABLET PO SCH (18:30)
[2018-11-21 20:00] VITALS: BP 119/64
[2018-11-21] MEDS ORDERED: ATORVASTATIN CALCIUM 20MG TABLET PO SCH (21:00)
[2018-11-21] MEDS: METOPROLOL TARTRATE 50MG TABLET PO SCH (21:44)
[2018-11-21] MEDS: ZOLPIDEM TARTRATE 5MG TABLET PO PRN (22:30)
[2018-11-22] VITALS: BP 138/68
[2018-11-22] MEDS: DILTIAZEM HCL 30MG TABLET PO SCH ×3 (00:22→12:49)
[2018-11-22] MEDS: PIPERACILLIN/TAZ 2.25G PREMIX 50 ML IV SCH ×3 (00:23→12:49)
[2018-11-22 04:00] VITALS: BP 115/73
[2018-11-22] MEDS: FUROSEMIDE 40MG TABLET PO SCH (05:25)
[2018-11-22] MEDS: BLOOD SUGAR DIAGNOSTIC STRIP TEST SCH ×2 (06:26→12:39)
[2018-11-22 06:35] LABS: BASOPHILS % 1.2 % (0.0-2.0); EOSINOPHILS % 5.5 % (0.0-5.0); HEMATOCRIT. 45.6 % (36.0-48.0); HEMOGLOBIN. 15.4 g/dL (12.0-16.0); MEAN CORPUSCULAR HEMOGLOBIN 29.6 pg (28.0-32.0); MEAN CORPUSCULAR VOLUME 87.6 fL (81.0-99.0); MEAN PLATELET VOLUME 9.3 fl (7.4-10.4); MONOCYTES % 10.8 % (2.0-8.0); NEUTROPHILS % 33.5 % (40.0-76.0); PLATELET 234 x1000/uL (130-400); RED BLOOD CELL COUNT 5.21 mill/uL (4.2-5.4); RED CELL DISTRIBUTION WIDTH 16.3 % (11.6-14.6)
[2018-11-22] MEDS: INSULIN LISPRO 100 UNITS/ML SUBCUT SCH ×2 (06:42→12:49)
[2018-11-22 06:43] LABS: CHLORIDE 98 mEq/L (98-107)
[2018-11-22 08:00] VITALS: BP 110/67
[2018-11-22] MEDS: GLIPIZIDE 10MG TABLET PO SCH (10:21)
[2018-11-22] MEDS: POTASSIUM CHLORIDE 20MEQ TABLET SR PO SCH (10:21)
[2018-11-22] MEDS: METFORMIN HCL 500MG TABLET PO SCH (10:21)
[2018-11-22] MEDS: FLUOXETINE HCL 20MG CAPSULE PO SCH (10:22)
[2018-11-22] MEDS: APIXABAN 5 MG TABLET PO SCH (10:22)
[2018-11-22] MEDS: METOPROLOL TARTRATE 50MG TABLET PO SCH (10:22)
[2018-11-22] MEDS: GABAPENTIN 100MG CAPSULE PO SCH (10:22)
[2018-11-22] MEDS: PIOGLITAZONE 15MG TABLET PO SCH (10:22)
[2018-11-22 12:00] VITALS: BP 131/74
[2018-11-28] MEDS ORDERED: ALENDRONATE SODIUM 35MG TABLET PO SCH (09:00)
== END 2018-11-22 14:26 | disposition home health service (06) | DRG 194 ==
LOC: ER 15:27 → 8WST 18:00 → ENRESERV 22:09
PROVIDERS: ADMIT Internal Medicine; ATTEND Internal Medicine
DX: I11.0 Hypertensive heart disease with heart failure (principal); E87.2 Acidosis; D69.6 Thrombocytopenia, unspecified; E11.40 Type 2 diabetes mellitus with diabetic neuropathy, unspecified; E11.649 Type 2 diabetes mellitus with hypoglycemia without coma; I48.1 Persistent atrial fibrillation; I50.33 Acute on chronic diastolic (congestive) heart failure; I27.20 Pulmonary hypertension, unspecified; N39.0 Urinary tract infection, site not specified; I24.9 Acute ischemic heart disease, unspecified; E78.00 Pure hypercholesterolemia, unspecified; M81.0 Age-related osteoporosis without current pathological fracture; M19.90 Unspecified osteoarthritis, unspecified site; E78.5 Hyperlipidemia, unspecified; G47.00 Insomnia, unspecified; Z86.73 Personal history of transient ischemic attack (TIA), and cerebral infarction without residual deficits; Z79.01 Long term (current) use of anticoagulants; Z79.84 Long term (current) use of oral hypoglycemic drugs; Z79.899 Other long term (current) drug therapy; Z79.2 Long term (current) use of antibiotics; Z79.4 Long term (current) use of insulin; Z87.01 Personal history of pneumonia (recurrent)
CPT/HCPCS: 36415; 71045; 80048; 80061; 82550; 82553; 82962; 83036; 83605; 83735; 83880; 84100; 84443; 84484; 85379; 87804; 93005; 93306; 93970; 96365; 96375; 97110; 97116; 97162; 97166; 99291; C1893; J1650; J1815; J1940; J2543; J3370; J3475; J7030; J7040; J7050